=== PATIENT | male | born 1935 | race Caucasian/White ===

== ENCOUNTER 2017-01-29 03:32 | Emergency (ER) | payer MEDICARE, BC ==
[~2017-01-29] VITALS: Ht 182.9 cm; Wt 80.0 kg
[2017-01-29 03:34] VITALS: BP 162/69; PULSE 86; RESP 18; TEMP 98; O2SAT 97
[2017-01-29] MEDS ORDERED: TRAZ50TA12 PO (04:14)
--- NOTE | 2017-01-29 04:41 | PD ---
HPI Chief Complaint: GI Complaint Time Seen by Provider: 04:11 Travel History International Travel<30 days: No Contact w/Intl Traveler<30days: No Traveled to known affect area: No History of Present Illness HPI The patient is an 81 year old male who presents to the [facility] emergency department with a history of difficulty urinating that began at 6 PM yesterday. The patient reports that he last moved his bowels a day before. He denies having any significant problem with constipation previously. He reports that he has had difficulty starting his stream of urine for a long time. The patient reports having a history of prostate cancer status post prostate radiation therapy. The patient reports that he has not been able to urinate since onset of symptoms yesterday. The patient reports that he is gradually had worsening abdominal pain related to this. He denies being on any new medications or taking any [id number] medications. Review of systems, the patient denies any recent fevers, cough, congestion, neck pain, chest pain, shortness of breath, vomiting, diarrhea, or neurologic symptoms. [facility] Past Medical History Narrative Medical The patient's past medical history is significant for prostate cancer status post radiation therapy, followed by Dr. Amor. The patient also has a history of insomnia. Inguinal Hernia: Yes Tetanus Vaccination: > 5 Years Past Surgical History Narrative Surgical The patient's past surgical history is significant for hernia repair, low back surgery, radiation therapy of the prostate. Abdominal Surgery: Yes (HERNIA REPAIR) Social History Alcohol Use: Yes (OCCASSIONALLY) Tobacco Use: No Substance Use: No Allergies-Medications (Allergen,Severity, Reaction): Coded Allergies: No Known Allergies (Unverified , 01/29/17) Reported Meds & Prescriptions Reported Meds & Active Scripts Active Reported Trazodone (Trazodone HCl) 50 Mg Tab 50 Mg PO HS Narrative Medication The patient is also reportedly on Rapaflo. Review of Systems Except as stated in HPI: all other systems reviewed are Neg General / Constitutional: No: Fever Eyes: No: Visual changes HENT: No: Headaches Cardiovascular: No: Chest Pain or Discomfort Respiratory: No: Shortness of Breath Gastrointestinal: Positive: Abdominal Pain, Constipation, Changes in Bowel Habits, No: Nausea, Vomiting, Diarrhea, Hematemesis, Hematochezia, Indigestion, Loss of Appetite Genitourinary: Positive: Urgency, Other (inability to urine), No: Frequency, Dysuria Musculoskeletal: No: Pain Skin: No Rash Neurologic: No: Weakness Psychiatric: No: Depression Endocrine: No: Polydipsia Hematologic/Lymphatic: No: Easy Bruising Physical Exam Narrative General: The patient is a well-developed well-nourished male who is uncomfortable appearing on arrival. Head and Neck exam: Head is normocephalic atraumatic. Eyes: EOMI, pupils are equal round and reactive to light. Nose: Midline septum with pink mucous membranes Mouth: Dentition unremarkable. Moist mucus membranes. Posterior oropharynx is not erythematous. No tonsillar hypertrophy. Uvula midline. Airway patent. Neck: No palpable lymphadenopathy. No nuchal rigidity. No thyromegaly. Cardiovascular: Regular rate and rhythm without murmurs, gallops, or rubs. Lungs: Clear to auscultation bilaterally. No wheezes, rhonchi, or rales. Abdomen: Soft, tenderness on palpation and palpable enlargement of the patient's bladder on exam. The patient has no other tenderness on palpation of the other quadrants of the abdomen No guarding, rebound, or rigidity normal bowel sounds are audible. No tenderness on palpation of McBurney's point. Negative Norris sign. On reexamination of his abdomen after catheter placement the patient has a soft abdomen without any tenderness on palpation of all 4 quadrants of the abdomen. Extremities: No clubbing, cyanosis, or edema. 2+ pulses in all 4 extremities. No calf tenderness on palpation. The patient is noted to have erythematous papules with overlying pustules scattered on the right lower extremity and ankle area. The patient reports that these are related to fire ant bites. Back: No spinous process tenderness to palpation. No costovertebral angle tenderness to palpation. Neurologic Exam: Grossly nonfocal. Skin Exam: Skin is warm and dry. Data Data Last Documented VS Vital Signs Date Time Temp Pulse Resp B/P (MAP) Pulse Ox O2 Delivery O2 Flow Rate FiO2 01/29/17 10:00 01/29/17 03:34 98.0 86 18 97 Room Air Orders Orders Electrocardiogram (01/29/17 04:21) Complete Blood Count With Diff (01/29/17 04:21) Comprehensive Metabolic Panel (01/29/17 04:21) Troponin I (01/29/17 04:21) Prothrombin Time / Inr (Pt) (01/29/17 04:21) Act Partial Throm Time (Ptt) (01/29/17 04:21) Lipase (01/29/17 04:21) Urinalysis - C+S If Indicated (01/29/17 04:21) Chest, Single Ap (01/29/17 04:21) Iv Access Insert/Monitor (01/29/17 04:21) Ecg Monitoring (01/29/17 04:21) Oximetry (01/29/17 04:21) Urinary Catheter Insert/Apply (01/29/17 04:21) Ed Discharge Order (01/29/17 07:14) ^ Special Equipment (01/29/17 07:50) Labs Laboratory Tests Test 01/29/17 04:30 White Blood Count 3.9 TH/MM3 Red Blood Count 4.14 MIL/MM3 Hemoglobin 13.1 GM/DL Hematocrit 38.4 % Mean Corpuscular Volume 92.8 FL Mean Corpuscular Hemoglobin 31.7 PG Mean Corpuscular Hemoglobin Concent 34.1 % Red Cell Distribution Width 14.7 % Platelet Count 201 TH/MM3 Mean Platelet Volume 6.7 FL Neutrophils (%) (Auto) 73.2 % Lymphocytes (%) (Auto) 19.8 % Monocytes (%) (Auto) 3.7 % Eosinophils (%) (Auto) 2.5 % Basophils (%) (Auto) 0.8 % Neutrophils # (Auto) 2.9 TH/MM3 Lymphocytes # (Auto) 0.8 TH/MM3 Monocytes # (Auto) 0.1 TH/MM3 Eosinophils # (Auto) 0.1 TH/MM3 Basophils # (Auto) 0.0 TH/MM3 CBC Comment DIFF FINAL Differential Comment Prothrombin Time 10.0 SEC Prothromb Time International Ratio 0.9 RATIO Activated Partial Thromboplast Time 25.9 SEC Urine Color LIGHT-YELLOW Urine Turbidity CLEAR Urine pH 6.0 Urine Specific [place] 1.005 Urine Protein NEG mg/dL Urine Glucose (UA) 70 mg/dL Urine Ketones NEG mg/dL Urine Occult Blood NEG Urine Nitrite NEG Urine Bilirubin NEG Urine Urobilinogen LESS THAN 2.0 MG/DL Urine Leukocyte Esterase NEG Urine WBC LESS THAN 1 /hpf Microscopic Urinalysis Comment CULT NOT INDICATED Blood Urea Nitrogen 19 MG/DL Creatinine 0.96 MG/DL Random Glucose 145 MG/DL Total Protein 6.8 GM/DL Albumin 3.6 GM/DL Calcium Level 9.3 MG/DL Alkaline Phosphatase 82 U/L Aspartate Amino Transf (AST/SGOT) 15 U/L Alanine Aminotransferase (ALT/SGPT) 24 U/L Total Bilirubin 0.3 MG/DL Sodium Level 139 MEQ/L Potassium Level 4.0 MEQ/L Chloride Level 105 MEQ/L Carbon Dioxide Level 25.5 MEQ/L Anion Gap 9 MEQ/L Estimat Glomerular Filtration Rate 75 ML/MIN Troponin I LESS THAN 0.02 NG/ML Lipase 216 U/L [facility] Medical Decision Making Medical Screen Exam Complete: Yes Emergency Medical Condition: Yes Medical Record Reviewed: Yes Interpretation(s) Last Impressions Chest X-Ray 01/29/17 0421 Signed Impressions: Service Date/Time: Sunday, January 29, 2017 05:11 - CONCLUSION: 1. No acute cardiopulmonary disease. 2. Right upper lobe nodule as above. CT scan is recommended for further evaluation if clinically indicated. Osiel Corbett MD Differential Diagnosis Renal failure, versus urinary retention related to bladder obstruction, versus constipation, versus fecal impaction Narrative Course During the course of the patients emergency department visit, the patients history, examination, and differential diagnosis were reviewed with the patient. The patient had IV access obtained and blood work sent for analysis. The patient was placed on a computer repair technician with oximetry and blood pressure monitoring. A bladder scan was done on arrival the patient had 800 mL of urine in his bladder. A Garcia catheter was placed to gravity. 1000 mL came out quickly during his emergency department evaluation. The patients laboratory studies were reviewed and remarkable for a white count of 3.9, hemoglobin 13.1, platelets 201 with 73.2 neutrophils, CMP is remarkable for a BUN of 19, glucose 145, troponin I is less than 0.02, lipase 216, PT PTT within normal limits, urinalysis shows 70 glucose otherwise unremarkable. Radiology studies were reviewed and remarkable for a chest x-ray that shows a right upper lobe nodule that is 10 mm, radiologist recommends follow-up CT scan as an outpatient to further evaluate. The patient on reexamination reported feeling improved. The patient was able to move his bowels well in the emergency department. The patient is resting comfortably and feels better, is alert and in no distress. The patients results and examination findings were discussed with the patient. The repeat examination is unremarkable and benign. The history, exam, diagnostic testing, and current condition do not suggest any significant pathology to warrant further testing, continued ED treatment, admission, or surgical evaluation at this point. The vital signs have been stable. The patient does not have uncontrollable pain, intractable vomiting, or other significant symptoms. The patient's condition is stable and appropriate for discharge. The patient will pursue further outpatient evaluation with a primary care physician or other designated or consulting physician as indicated in the discharge instructions. The patient expressed understanding and was agreeable with this plan. Diagnosis Primary Impression: Urinary retention Additional Impression: Constipation Qualified Codes: K59.00 - Constipation, unspecified Referrals: Primary Care Physician 2 days Urologist 1 day Patient Instructions: General Instructions, Urinary Retention in Men (ED) Additional Instructions: The patient is noted to have a lung nodule on chest x-ray. This was discussed with him. It was recommended by the radiologist for him to have a follow-up CT scan of the thorax to further evaluate. The patient is given an outpatient lab slip to obtain this. He was instructed to follow-up with his primary care physician, Dr. Swain regarding this. Disposition: 01 DISCHARGE HOME Condition: Stable Bia Ramirez MD Jan 29, 2017 04:41
[2017-01-29 04:48] LABS: AUTOMATED NEUTROPHIL # 2.9 TH/MM3 (1.8-7.7); BASOPHIL % 0.8 % (0.0-2.0); BLOOD, URINE NEG (NEG); EOSINOPHIL # 0.1 TH/MM3 (0-0.4); EOSINOPHIL % 2.5 % (0.0-4.0); GLUCOSE,URINE 70 mg/dL (NEG); HEMATOCRIT 38.4 % (39.0-51.0); HEMO FLAGS DIFF FINAL; KETONE, URINE NEG (NEG); LYMPH % 19.8 % (9.0-44.0); LYMPHOCYTE # 0.8 TH/MM3 (1.0-4.8); MEAN CELL VOLUME 92.8 FL (80.0-100.0); MEAN CORPUSCULAR HEMOGLOBIN 31.7 PG (27.0-34.0); MEAN CORPUSCULAR HGB CONC 34.1 % (32.0-36.0); MONO % 3.7 % (0.0-8.0); NEUT % 73.2 % (16.0-70.0); NITRITE,URINE NEG (NEG); PLATELET COUNT 201 TH/MM3 (150-450); RED BLOOD COUNT 4.14 MIL/MM3 (4.50-5.90); RED CELL DISTRIBUTION WIDTH 14.7 % (11.6-17.2); URINE COLOR LIGHT-YELLOW (YELLW/STRAW); WHITE BLOOD COUNT 3.9 TH/MM3 (4.0-11.0)
[2017-01-29 04:50] LABS: COMMENT (UR) CULT NOT INDICATED; CULTURE IF INDICATED CULT NOT INDICATED
[2017-01-29 05:02] LABS: ALT (GPT) 24 U/L (12-78); ANION GAP 9 MEQ/L (5-15); AST (GOT) 15 U/L (15-37); BICARBONATE 25.5 MEQ/L (21.0-32.0); BLOOD UREA NITROGEN 19 MG/DL (7-18); CHLORIDE 105 MEQ/L (98-107); GLOMERULAR FILTRATION RATE 75 ML/MIN (>89); SODIUM (NA) 139 MEQ/L (136-145)
[2017-01-29 05:06] LABS: ALKALINE PHOSPHATASE 82 U/L (45-117); TOTAL BILIRUBIN ADULT 0.3 MG/DL (0.2-1.0)
[2017-01-29 05:13] LABS: APTT (PATIENT) 25.9 SEC (24.3-30.1); INTERNATIONAL NORMALIZED RATIO 0.9 RATIO
--- NOTE | 2017-01-29 05:42 | RADRPT ---
EXAM DATE/TIME: 01/29/2017 05:11 [place] COMPARISON: No previous studies available for comparison. INDICATIONS : Cough. MEDICAL HISTORY : None. SURGICAL HISTORY : None. ENCOUNTER: Initial ACUITY: 1 day PAIN SCORE: 2/10 LOCATION: Bilateral chest FINDINGS: The cardiac silhouette is normal in transverse diameter. The lungs are free of acute parenchymal opac ity. No effusions are identified. There is a 10 mm nodule in the right upper lobe. Malignancy is not excluded. CT scan is recommended for further evaluation if clinically indicated. CONCLUSION: 1. No acute cardiopulmonary disease. 2. Right upper lobe nodule as above. CT scan is recommended for further evaluation if clinically jeancarlos cated. Osiel Corbett MD on January 29, 2017 at 5:40 Board Certified Radiologist. This report was verified electronically.
== END 2017-01-29 10:47 | disposition home or self-care (01) ==
LOC: NEPE 03:32
DX: R33.9 Retention of urine, unspecified (principal); K59.00 Constipation, unspecified; Z85.46 Personal history of malignant neoplasm of prostate; R10.9 Unspecified abdominal pain
CPT/HCPCS: 51702; 71010; 80053; 81001; 83690; 84484; 85025; 85610; 85730

== ENCOUNTER 2017-06-07 00:24 | Emergency (ER) | payer MEDICARE, BC ==
[~2017-06-07] VITALS: Ht 167.6 cm; Wt 72.0 kg
[~2017-06-07 00:24] MED LIST: TRAZ50TA12 PO
[2017-06-07 00:25] VITALS: BP 185/86; PULSE 86; RESP 16; TEMP 98; O2SAT 99
[2017-06-07 01:50] LABS: BACTERIA, URINE OCC /hpf; BILIRUBIN, URINE NEG (NEG); BLOOD, URINE LARGE (NEG); GLUCOSE,URINE NEG (NEG); KETONE, URINE NEG (NEG); NITRITE,URINE NEG (NEG); PH, URINE 6.5 (5.0-8.5); URINE COLOR YELLOW (YELLW/STRAW); URINE LEUKOCYTE ESTERASE LARGE (NEG)
[2017-06-07] MEDS ORDERED: LEVOFLOXACIN 750 MG TAB PO ONE (02:00)
[2017-06-07] MEDS ORDERED: PHENAZOPYRIDINE HCL 200 MG TAB PO ONE (02:30)
--- NOTE | 2017-06-07 02:33 | PD ---
HPI Chief Complaint: Complaint Time Seen by Provider: 00:44 Travel History International Travel<30 days: No Contact w/Intl Traveler<30days: No Traveled to known affect area: No History of Present Illness HPI Patient is a 81-year-old male who week currently straight catheter himself for urinary retention due to prostate issues he's had prostate surgeries. And he is coming in because she's had no urine when he straight catheter himself today he was worried that there was no output and he also feels pressure there as well. He usually gets a good amount of urine out when he straight cast with tonight he said there was nothing. He comes in worried that there is no urine. And suprapubic tenderness PFSH Past Medical History Inguinal Hernia: Yes Immunizations Current: Yes Tetanus Vaccination: Unknown Influenza Vaccination: Yes Past Surgical History Abdominal Surgery: Yes (HERNIA REPAIR) Social History Alcohol Use: Yes (OCCASSIONALLY) Tobacco Use: No Substance Use: No Allergies-Medications (Allergen,Severity, Reaction): Coded Allergies: No Known Allergies (Unverified Adverse Reaction, Unknown, 06/07/17) Reported Meds & Prescriptions Reported Meds & Active Scripts Active Pyridium (Phenazopyridine HCl) 100 Mg Tab 100 Mg PO Q8HR Levaquin (Levofloxacin) 750 Mg Tablet 750 Mg PO DAILY Reported Trazodone (Trazodone HCl) 50 Mg Tab 50 Mg PO HS Review of Systems Except as stated in HPI: all other systems reviewed are Neg Gastrointestinal: Positive: Abdominal Pain Genitourinary: Positive: Decreased Urinary Output Physical Exam Narrative GENERAL: non toxic appearing SKIN: Warm and dry. HEAD: Atraumatic. Normocephalic. EYES: Pupils equal and round. No scleral icterus. No injection or drainage. ENT: No nasal bleeding or discharge. Mucous membranes pink and moist. NECK: Trachea midline. No JVD. CARDIOVASCULAR: Regular rate and rhythm. RESPIRATORY: No accessory muscle use. Clear to auscultation. Breath sounds equal bilaterally. GASTROINTESTINAL: Abdomen soft, suprapubic tenderness , nondistended. Hepatic and splenic margins not palpable. MUSCULOSKELETAL: Extremities without clubbing, cyanosis, or edema. No obvious deformities. NEUROLOGICAL: Awake and alert. No obvious cranial nerve deficits. Motor grossly within normal limits. Five out of 5 muscle strength in the arms and legs. Normal speech. PSYCHIATRIC: Appropriate mood and affect; insight and judgment normal. Data Data Last Documented VS Vital Signs Date Time Temp Pulse Resp B/P (MAP) Pulse Ox O2 Delivery O2 Flow Rate FiO2 06/07/17 00:25 98.0 86 16 185/86 (119) 99 Room Air Orders Orders Urinalysis - C+S If Indicated (06/07/17 01:15) Urine Culture (06/07/17 01:30) Levofloxacin (Levaquin) (06/07/17 02:00) Phenazopyridine (Pyridium) (06/07/17 02:30) Ed Discharge Order (06/07/17 04:32) Labs Laboratory Tests Test 06/07/17 01:30 Urine Color YELLOW Urine Turbidity HAZY Urine pH 6.5 Urine Specific [place] 1.023 Urine Protein 100 mg/dL Urine Glucose (UA) NEG mg/dL Urine Ketones NEG mg/dL Urine Occult Blood LARGE Urine Nitrite NEG Urine Bilirubin NEG Urine Urobilinogen LESS THAN 2.0 MG/DL Urine Leukocyte Esterase LARGE Urine RBC /hpf Urine WBC /hpf Urine Bacteria OCC /hpf Microscopic Urinalysis Comment CULTURE INDICATED MDM Medical Decision Making Medical Screen Exam Complete: Yes Emergency Medical Condition: Yes Differential Diagnosis dehydration vs retention vs UTI and BPH consequences Narrative Course Patient was straight In the ER with only about 20 cc sent to the lab it is positive for multiple white cells multiple red cells and it is positive for UTI Levaquin by mouth is given and Pyridium for the bladder spasms that are causing him to feel pressure in his suprapubic area patient 3 hours later his trach Again 500 cc is removed he feels much better he'll be discharged on Levaquin and protamine for the next 7 days follow-up with urology Diagnosis Primary Impression: Urinary tract infection Qualified Codes: N30.00 - Acute cystitis without hematuria Patient Instructions: General Instructions, Urinary Tract Infection in Men (ED) Scripts Phenazopyridine (Pyridium) 100 Mg Tab 100 MG PO Q8HR for Dysuria, #6 TAB 0 Refills Prov: Faustino Eason MD 06/07/17 Levofloxacin (Levaquin) 750 Mg Tablet 750 MG PO DAILY for Infection, #7 TAB 0 Refills Prov: Faustino Eason MD 06/07/17 Disposition: 01 DISCHARGE HOME Condition: Good Faustino Eason MD Jun 07, 2017 02:33
[2017-06-07] MEDS ORDERED: PHEN0.4T PO (04:28)
[2017-06-07] MEDS ORDERED: LEVA750T9 PO (04:28)
== END 2017-06-07 04:44 | disposition home or self-care (01) ==
LOC: NEPE 00:24
DX: N30.00 Acute cystitis without hematuria (principal)
CPT/HCPCS: 81001; 87077; 87086; 99283